=== PATIENT | male | born 1985 | race African-American/Black ===

== ENCOUNTER 2018-09-28 22:48 | Emergency (ER) | payer OTHER ==
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
[2018-09-29] MEDS ORDERED: Ketorolac Tromethamine 60 MG/2 ML VIAL ONE (01:25)
== END 2018-09-29 01:53 | disposition home or self-care (01) ==
LOC: ERS 22:48
DX: S82.831A Other fracture of upper and lower end of right fibula, initial encounter for closed fracture (principal); V69.9XXA Occupant (driver) (passenger) of heavy transport vehicle injured in unspecified traffic accident, initial encounter
CPT/HCPCS: 96372; J1885